=== PATIENT | female | born 1950 | race Caucasian/White ===

== ENCOUNTER → 2023-10-29 13:07 | Outpatient (REF) | payer MEDICARE, SELFPAY | LOC: WDC 13:07 | PROVIDERS: ATTENDING PHYSICIAN Internal Medicine; FAMILY PHYSICIAN Internal Medicine | DX: Z12.31 Encounter for screening mammogram for malignant neoplasm of breast (principal) | CPT/HCPCS: 77063; 77067 ==

== ENCOUNTER → 2023-12-19 09:04 | Outpatient (REF) | payer MEDICARE, SELFPAY | LOC: RAD 09:04 | PROVIDERS: ATTENDING PHYSICIAN Internal Medicine | DX: M85.80 Other specified disorders of bone density and structure, unspecified site (principal) | CPT/HCPCS: 77080 ==

== ENCOUNTER → 2024-10-30 13:14 | Outpatient (REF) | payer MEDICARE, SELFPAY | LOC: WDC 13:14 | PROVIDERS: ATTENDING PHYSICIAN Internal Medicine | DX: Z12.31 Encounter for screening mammogram for malignant neoplasm of breast (principal) | CPT/HCPCS: 77063; 77067 ==